=== PATIENT | female | born 1990 | race Caucasian/White ===

== ENCOUNTER 2023-06-25 11:28 | Outpatient (CLI) | payer OTHER, SELFPAY | END 2023-06-25 11:29 | disposition home or self-care (01) | PROVIDERS: Visit Provider Advanced Practice Midwife | DX: Z11.3 Encounter for screening for infections with a predominantly sexual mode of transmission (principal) | CPT/HCPCS: 80061; 84443; 86592; 86703; 86706; 86803; 87340; 87491; 87591 ==

== ENCOUNTER 2023-07-05 07:25 | Outpatient (CLI) | payer OTHER, SELFPAY ==
--- NOTE | 2023-07-05 07:45 | CRLHL7_ITS ---
For Patients: As a result of the Cures Act, medical imaging exams and procedure reports are released immediately into your electronic medical record. You may view this report before your referring provider. If you have questions, please contact your health care provider. DIGITAL DIAGNOSTIC RIGHT MAMMOGRAM USING TOMOSYNTHESIS AND COMPUTER-AIDED DETECTION RIGHT BREAST ULTRASOUND CLINICAL HISTORY: RIGHT breast lump. COMPARISON: None. TECHNIQUE: Digital RIGHT mammogram in two projections. Tomosynthesis and CAD utilized. Real-time ultrasound imaging of RIGHT breast with imaging documentation. BREAST COMPOSITION: The breasts are almost entirely fatty. FINDINGS: 3D CC/MLO RIGHT breast mammogram images submitted. Circumscribed calcified nodule located within the upper breast corresponding to the palpable abnormality. No suspicious calcifications or architectural distortion. No adenopathy. Targeted sonogram RIGHT breast 12 o`clock 6 cm from the nipple performed. In this location there is a calcified benign nodule measuring 9 x 11 x 8 millimeters. No suspicious findings. IMPRESSION: Benign calcified oil cyst RIGHT breast 12 o`clock 6 cm from the nipple measuring 1.1 cm. No evidence of malignancy. RECOMMENDATIONS: Age-appropriate screening mammography. Results and recommendations discussed with the patient. BI-RADS Category 2: Benign A lay language report of this examination will be provided to the patient. Dictated by Juvencio Dumont MD @ 07/05/2023 8:49:14 AM /Dictated by: Juvencio Dumont MD @ 07/05/2023 8:49:00 AM (Electronically Signed)
--- NOTE | 2023-07-05 08:15 | CRLHL7_ITS ---
For Patients: As a result of the Cures Act, medical imaging exams and procedure reports are released immediately into your electronic medical record. You may view this report before your referring provider. If you have questions, please contact your health care provider. PLEASE SEE DIGITAL DIAGNOSTIC RIGHT MAMMOGRAM PERFORMED SAME DAY CRL:ligia strong/Dictated by: Juvencio Dumont MD @ 07/05/2023 8:49:00 AM (Electronically Signed)
== END 2023-07-05 07:26 | disposition home or self-care (01) ==
PROVIDERS: Visit Provider Advanced Practice Midwife
DX: N63.15 Unspecified lump in the right breast, overlapping quadrants (principal)
CPT/HCPCS: 76642; 77065; G0279

== ENCOUNTER 2025-07-24 15:08 | Outpatient (CLI) | payer BC, SELFPAY ==
[2025-07-27 09:07] LABS: HPV Source Cervical
[2025-07-29 18:09] LABS: Pap Test Digital Imaging Done
== END 2025-07-24 15:09 | disposition home or self-care (01) ==
PROVIDERS: Visit Provider Advanced Practice Midwife
DX: Z12.4 Encounter for screening for malignant neoplasm of cervix (principal)
CPT/HCPCS: 87624; 87625; 88141; 88142; 88175

== ENCOUNTER 2025-08-08 09:55 | Outpatient (CLI) | payer BC, SELFPAY | END 2025-08-08 09:56 | disposition home or self-care (01) | LOC: NFLDREF 08-10 13:17 | PROVIDERS: Visit Provider Advanced Practice Midwife | DX: E78.5 Hyperlipidemia, unspecified (principal) | CPT/HCPCS: 80061; 82947 ==